=== PATIENT | male | born 1960 | race Caucasian/White ===

== ENCOUNTER → 2020-08-04 13:30 | Outpatient (BNVA) | payer BC, SELFPAY | PROVIDERS: PCP Internal Medicine Nephrology; Visit Provider Specialist | DX: H49.9 Unspecified paralytic strabismus (principal); R13.10 Dysphagia, unspecified | CPT/HCPCS: 99205 ==

== ENCOUNTER 2020-08-13 11:39 | Outpatient (CLI) | payer BC, SELFPAY ==
--- NOTE | 2020-08-13 11:30 | FL_ITS ---
WS: [id number] Modified barium swallow, 08/13/2020 Clinical Data: R13.10 - Dysphagia, unspecified Comparison: None. Fluoroscopy time: 2.1 minutes. Findings: The patient initiated swallowing normally. There was a diminished laryngeal seal with liquids with pe netration but no aspiration. There is mild weakness of the laryngeal excursion, hypopharyngeal expans ion and pharyngeal compression. The patient slowly initiated swallowing the tablet which moved normal ly through the hypopharynx and then into the esophagus and 5 the stomach. FL/FL barium swallow modifd [id number] Impression: 1. Diminished laryngeal seal with liquids with penetration but no aspiration. 2. Mild weakness of laryngeal excursion, hypopharyngeal expansion and pharyngea l compression.
== END 2020-08-13 11:40 | disposition home or self-care (01) ==
PROVIDERS: PCP Internal Medicine Nephrology; Visit Provider Specialist
DX: R13.10 Dysphagia, unspecified (principal)
CPT/HCPCS: 74230; 92611

== ENCOUNTER → 2020-10-08 12:51 | Outpatient (BNVA) | payer BC, SELFPAY | PROVIDERS: PCP Internal Medicine Nephrology; Visit Provider Specialist | DX: H49.9 Unspecified paralytic strabismus (principal) | CPT/HCPCS: G0463 ==